=== PATIENT | male | born 1960 | race Caucasian/White ===

== ENCOUNTER → 2017-03-05 06:26 | Day surgery (SDC) | payer BC ==
[~2017-03-05 06:26] MED LIST: Atracurium* 10 MG/ML 10 ML VIAL ONE; Buffered Lidocaine 0.9% SYRIN* 5 ML/SYR SYRINGE ONE; Famotidine IV* 10 MG/ML 2 ML (20 mg) IV ONE; Famotidine IV* 10 MG/ML 2 ML (20 mg) ONE; Gelatin ADSORBABLE (OPHTH)* OPHTH.FILM ONE; Gelfoam 12-7 ADSORBABL SPONGE* 1 EA SPONGE ONE; Glycopyrrolate IV* 0.2 MG/ML 1 ML VIAL ONE; KETAMINE HCL* 50 MG/ML 10 ML VIAL ONE; Lidocaine 2% EPI 1:200000 MPF* 20 ML VIAL ONE; Lidocaine 2% PF * 5 ML VIAL ONE; Midazolam* 1 MG/ML 5 ML VIAL (5 MG) ONE; Morphine INJ* 2 MG/ML 1 ML SYRINGE IV PRN; Neostigmine Methylsulfate* 2 MG/2 ML SYRINGE ONE; Ondansetron INJ* 2 MG/ML VIAL ONE; Oxymetazoline 0.05% NASAL SPR* 15 ML BTL ONE; PROCHLORPERAZINE INJ 5 MG/ML 2 ML VIAL IV PRN; PROCHLORPERAZINE INJ 5 MG/ML 2 ML VIAL ONE; Propofol* 10 MG/ML 20 ML BTL IV PUSH ONE; fentaNYL* 50 MCG/ML 2 ML VIAL (100 MCG VIAL) ONE; oxyCODONE/Acetamin 5/325 MG* TAB PO PRN
[2017-03-05] MEDS: fentaNYL* 50 MCG/ML 2 ML VIAL (100 MCG VIAL) IV PRN ×2 (09:11→09:23)
[2017-03-05 10:53] VITALS: BP 137/73
--- NOTE | 2017-03-05 15:21 | OP ---
DATE OF OPERATION: 03/05/17 - [facility] DATE OF : 58. SURGEON: Vaughn Hodges MD. ANESTHESIOLOGIST: Dr. Evangelista. ANESTHESIA: General. PRE-OP DIAGNOSES: 1. Nasal polyposis. 2. Chronic sinusitis. POST-OP DIAGNOSES: 1. Nasal polyposis. 2. Chronic sinusitis. OPERATIVE PROCEDURE: Bilateral videoendoscopic maxillary antrostomy with removal of tissue, bilateral anterior and posterior ethmoidectomy. INDICATIONS: This 56-year-old, with chronic symptoms of nasal obstruction, chronic rhinorrhea and symptoms suggestive of chronic sinusitis elected for surgical management having failed medical therapy, which included oral steroids and nasal steroids. DESCRIPTION OF PROCEDURE: The patient was taken to the operating room and general anesthetic was given. The patient was intubated. The nose was decongested with Afrin-placed pledgets. A 0-degree telescope, 30-degree telescope, and other endoscopic sinus surgery instruments were utilized. CTs were available for visualization in the operating room. We initially started our attention on the left side. There was excessive polyps from the ethmoid lateral nasal wall. These were removed with the microshaver. The antrostomy was then created removing the uncinate process and extending the antrum anteriorly and somewhat posteriorly making a large antrostomy. Polypoidal material within the maxillary sinus was then removed using a, microshaver. We then turned our attention to the excessive ethmoidal bulla, which was exuberance of polyps was removed, posteriorly towards the skull base coursing superiorly and laterally towards the lamina papyracea into the nasal frontal duct area. Once adequate resection of ethmoids and polyps were carried out, the area was packed with Gelfilm and Gelfoam, which was used as a spacer between the middle turbinate and lateral nasal wall. On the right side again there were excessive polyps. These were removed. The uncinate process was removed. A large polyp in the right maxillary sinus was drained and removed using a microshaver. Once the antrostomy was enlarged the ethmoidal resection was carried out both anteriorly and posteriorly resecting out towards the skull base then superiorly into the nasal frontal duct area. A small piece of Propel was then used in the area as a spacer between the middle turbinate and lateral nasal wall. Patient was then awakened, extubated and sent to recovery room in stable condition. Estimated blood loss was approximately 150 cc. [id number]/[facility] #: [id number] [facility]
== END | disposition home or self-care (01) ==
LOC: OR 06:26
PROVIDERS: ATTEND Otolaryngology
DX: J33.8 Other polyp of sinus (principal); J32.8 Other chronic sinusitis; J45.909 Unspecified asthma, uncomplicated
CPT/HCPCS: 88305; A9270-GY; J0780; J2250; J2405; J2704; J3010